=== PATIENT | female | born 1990 | race Caucasian/White ===

== ENCOUNTER 2017-06-04 12:00 | Emergency (ER) | payer MEDICAID ==
[~2017-06-04] VITALS: Ht 160 cm; Wt 43.1 kg
[~2017-06-04 12:00] MED LIST: CIPRO 500MG TA500 MG PO; CITALOPRAM10 M1 PO; CLONAZEPAM 1MG T1 MG PO; GABAPENTIN100 M1 PO; IRON TABLETS325 MG PO; MOTRIN 400MG.400 MG PO; PERCOCET 10 MG1 EACH PO; PHENERGAN 25MG.25 M1 PO; PRENATAL PLUS1 TA1 PO; PYRIDIUM200 M2 PO; SEPTRA DS 800 M1 TAB PO; SUBUTEX8 MG SL
--- NOTE | 2017-06-04 12:24 | Emergency Room Report ---
History of Present Illness Time Seen by 1220 Presenting Problem in Triage Pt arrived:Walked Presenting Problem:WITHDRAWING FROM KLONOPIN AND SUBOXONE AFTER BEING ABRUPTLY STOPPED BY HER PCP Onset of symptoms date/time:/ or onset unknown for:MEDICAL HX UNKNOWN Treatment Prior to Arrival: [employer] Provided by: Sepsis Risk Assessment: Temp: 97.8 B/P: MAP: Pulse: 71 Resp: 18 Recent fever? N Clinical Suspician of Infection? Y Mental Status: 1 - Regular (Normal Baseline) Sepsis Risk:Low Sepsis Risk Have you (or family members/close friends) recently traveled outside the [facility]? N If Yes, where/when: Have you had exposure to infectious disease within the past month? TB? Other? Specify: Patient withdrawing from Suboxone and Klonopin; had received those Rx's from Dr. Kenny in [place] but states he is no longer writing these Rx's for her as "he doesn't see [place] patients anymore.". She is nauseated. No fever or chest pain. No cough. No abdominal pain. ALLERGIES Coded Allergies: acetaminophen (Mild, 06/04/17) codeine (Mild, 06/04/17) phenazopyridine (From PYRIDIUM) (Mild, 06/04/17) Home Medications Active Scripts Ciprofloxacin HCl (Cipro 500MG TAB) 500 MG PO BID #14 TAB Prov: 07/23/16 History Medical History General CAD? No Angina: No DC: No Hypertension? No Hyperlipidemia? No CHF? No DVT? No PE? No COPD? No Asthma? No Anemia? No GERD? No Gastric ulcers? No GI Bleed? No Hernia? No Thyroid Problems? No Hypothyroidism? No CVA? No Seizures? No Diabetes? No Renal Insuffiency? No End Stage Renal Disease? No UTI? Yes Stones? No BPH? No GB Disease: No Nephritic Syndrome? No Asplenia? No Hepatitis? Yes Sickle Cell Disease? No Arthritis? No Cataracts? No Glaucoma? No MRSA? No TB? No Cancer? 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 Social History Smoking Hx Smoker: Current Every Day Smoker Tobacco: Yes Type Cigarettes Packs/day < 1 Pack Alcohol Alcohol: No Review of Systems All Other Systems Reviewed and Negative Gastrointestinal see HPI Physical Exam Vital Signs Vital Signs Date Time Temp Pulse Resp B/P Pulse O2 O2 Flow FiO2 Ox Delivery Rate 06/04 1225 148 103/87 06/04 1225 71 124/83 06/04 1207 97.8 71 18 131/85 98 General Appearance normal appearance, WD/WN, no apparent distress Eye Exam - bilateral eye normal exam, bilateral eye PERRL, bilateral eye EOMI Neck normal inspection, non-tender, supple, full range of motion Respiratory Status Yes: trachea midline, chest symmetrical, non tender chest. No: respiratory distress, tender on palpation, use of accessory muscles, pain on inspiration, pain on expiration, productive cough, non productive cough. Lung Sounds bilateral: normal breath sounds, lungs clear. Cardiovascular normal exam, regular rate/rhythm, no peripheral edema, no gallop, no JVD, no murmur, no rub, normal peripheral pulses Peripheral Pulses Pulses normal Yes Gastrointestinal normal bowel sounds, normal exam, non tender, soft, no organomegaly, no pulsatile mass, no guarding, no rebound Extremities non-tender, normal range of motion, normal inspection, normal capillary refill, no calf tenderness, no pedal edema Strength 5 Upper Ext (L), 5 Upper Ext (R), 5 Lower Ext (L), 5 Lower Ext (R) Neurologic alert, normal exam, no motor/sensory deficits, oriented x 3 Glascow Coma Scale Glascow Coma Scale Response Value EYE response: 4 Spontaneously 4 MOTOR response: 6 OBEYS 6 VERBAL response: 5 Oriented & Converses 5 Total 15 Mental status normal mood/affect Skin intact, normal color (no track ballesteros noted) Medical Decision Making LABS/Meds/Orders Pt receiving controlled substance in ED? No Results/Orders Laboratory Tests 06/04/17 1325: Urine Color DK YELLOW, Urine Appearance TURBID, Urine pH 6.5, Ur Specific [place] 1.025, Urine Protein 2+ H, Urine Ketones TRACE H, Urine Blood 3+ H, Urine Nitrate NEGATIVE, Urine Bilirubin 2+ H, Urine Urobilinogen 4.0, Ur Leukocyte Esterase TRACE H, Urine RBC 5-10, Urine WBC 10-20, Ur Squamous Epith Cells 10-20, Urine Bacteria 4+, Urine Glucose NEGATIVE 06/04/17 1255: Sodium 140, Potassium 3.9, Chloride 100, Carbon Dioxide 25, BUN 19 H, Creatinine 1.0, Estimated Creat Clear 56, Estimated GFR (MDRD) 66, Glucose 128 H, Calcium 10.2 H, Total Bilirubin 0.5, AST 11 L, ALT 18, Alkaline Phosphatase 68, Total Protein 9.7 H, Albumin 4.6, Globulin 5.1 H, Albumin/Globulin Ratio 0.9 L, WBC 12.3 H, RBC 5.26, Hgb 16.0, Hct 46.9, MCV 89.3, RDW 13.8, Plt Count 249, MPV 9.2, Gran % 86.8 H, Gran # 10.7 H, Total Counted 100, Lymphocytes % 10.4, Monocytes % 2.5, Eosinophils % 0.1, Basophils % 0.1, Neutrophils 84 H, Lymphocytes (Manual) 9 L, Lymphocytes # 1.3, Monocytes (Manual) 6, Monocytes # 0.3, Eosinophils # 0.0, Basophils # 0.0, Basophils # (Manual) 1, Platelet Estimate NORMAL, PUBS MCHC 33.9, MCH 30.3 Current Medication Orders Sig/Soo Start time Last Medication Dose Route Stop Time Status Admin Ondansetron HCl 4 MG ONCE ONE 06/04 1330 DC IV 06/04 1331 Lactated Ringer's 1,000 ML .STK-MED ONE 06/04 1242 DC IV Lactated Ringer's 1,000 ML .Q1H1M 06/04 1230 AC IV Promethazine HCl 12.5 MG ONCE ONE 06/04 1230 DC 06/04 IM 06/04 1231 1217 Sodium Chloride 25 ML ONCE ONE 06/04 1230 CAN IV 06/04 1244 Sodium Chloride 10 ML PRN PRN 06/04 1230 AC IV 06/05 1228 Promethazine HCl 0 .STK-MED ONE 06/04 1215 DC .ROUTE Orders Procedure Date/time Status CULTURE, URINE 06/04 1325 Active DIFFERENTIAL-WBC 06/04 1255 Complete URINALYSIS/COMPLETE 06/04 1228 Complete URINE 06/04 1228 Complete CBC WITH AUTO DIFF 06/04 1228 Complete CHEM 12 PROFILE 06/04 1228 Complete ORTHOSTATIC B/P 06/04 1224 Active Progress ED Progress Notes Date 06/04/17 Time 1356 Comment No further vomiting. PO fluids. Departure Departure Time of Disposition 1356 Disposition DC Home or Self Care(routine) Clinical Impression Primary Impression: Drug withdrawal Qualifiers: Substance type: sedative, hypnotic or anxiolytic Qualified Code: F13.239 - Sedative, hypnotic or anxiolytic dependence with withdrawal, unspecified Condition STABLE Patient Instructions DI for Drug or Alcohol Withdrawal Additional Instructions See family doctor of choice for follow up; urine had some pus in it so Rx macrobid: start it when your vomiting is better under control, and take Zofran prior to taking your antibiotics. Discharge Counseling Counseled pt/family regarding diagnosis, test results, medications/RX, home care, follow up needs Prescriptions Current Visit Scripts Ondansetron (Zofran 4MG Odt) 4 MG PO Q6HP PRN NAUSEA AND VOMITING #6 ODT NITROFURANTOIN MONOHYD/M-CRYST (Macrobid 100 MG Capsule) 100 MG PO BID #14 CAP generic ok ED Critical Care Critical Care No at [id number]
[2017-06-04 13:20] LABS: LYMPH # 1.3 K/mm3 (0.7-4.5); LYMPH % 10.4 % (10-50.0)
[2017-06-04 13:36] LABS: URINE BLOOD 3+ (NEG)
[2017-06-04 13:37] LABS: NEUTROPHILS 84 % (42-76)
[2017-06-04 13:49] LABS: URINE BILIRUBIN - DIPSTICK 2+ (NEG)
[2017-06-04] MEDS ORDERED: MACROBID100 M3 PO (13:58)
[2017-06-04] MEDS ORDERED: ZOFRAN ODT4 MG PO (13:58)
[2017-06-04 14:38] VITALS: BP 108/73
== END 2017-06-04 14:39 | disposition home or self-care (01) ==
LOC: ER 12:00
PROVIDERS: Emergency Medicine
DX: F13.239 Sedative, hypnotic or anxiolytic dependence with withdrawal, unspecified (principal); Z72.0 Tobacco use